=== PATIENT | female | born 1955 | race Caucasian/White ===

== ENCOUNTER 2025-01-11 11:25 | Inpatient (IN) | payer MEDICARE, OTHER ==
[~2025-01-11] VITALS: Ht 160 cm; Wt 69.0 kg
[~2025-01-11 11:25] MED LIST: NOCURR
[2025-01-11] MEDS: HydrALAZINE HCL 20 MG/ML VIAL IVP ONE (12:19)
[2025-01-11 12:27] LABS: BASOPHILS % (AUTO) 0.7 % (0.0-2.0); EOSINOPHILS % (AUTO) 2.9 % (1.0-6.0); HEMATOCRIT 39.5 % (36-46); LYMPHOCYTES # (AUTO) 2.5 K/uL (1.0-4.8); LYMPHOCYTES % (AUTO) 38.1 % (22.0-44.0); MEAN CORPUSCULAR HEMOGLOBIN 27.8 pg (26.0-34.0); MEAN CORPUSCULAR HGB CONC 32.8 G/dL (31.0-37.0); MEAN CORPUSCULAR VOLUME 85 fL (80-100); MONOCYTES # (AUTO) 0.5 K/uL (0.1-1.0); NEUTROPHILS # (AUTO) 3.4 K/uL (1.8-7.7); NEUTROPHILS % (AUTO) 51.3 % (40.0-70.0); PLATELET COUNT (AUTO) 333 K/uL (150-450); RED BLOOD CELL COUNT(AUTO) 4.66 MIL/uL (4.00-5.20); RED CELL DISTRIBUTION WIDTH 13.2 % (11.5-14.5); WHITE BLOOD COUNT (AUTO) 6.6 K/uL (4.5-11.0)
[2025-01-11 12:33] LABS: ANION GAP 8 mmol/L (8-16); CALCIUM, TOTAL 9.4 mg/dL (8.8-10.5); CARBON DIOXIDE 27 mmol/L (22-29); CHLORIDE 101 mmol/L (98-107); CREATININE 0.69 mg/dL (0.60-1.30); GLOMERULAR FILTR. RATE CALC > 60 mL/min (>60); SODIUM SERUM 136 mmol/L (136-145); UREA NITROGEN, BLOOD 16 mg/dL (7-18)
[2025-01-11 12:42] LABS: CREATINE KINASE, TOTAL ONLY 69 U/L (26-192); TROPONIN I-HIGH SENSITIVITY 10 ng/L (<51)
[2025-01-11 12:44] LABS: GLUCOSE,RANDOM 293 mg/dL (70-110)
[2025-01-11 12:53] LABS: B-TYPE NATRIURETIC PEPTIDE 33 pg/mL (0-100)
[2025-01-11 12:59] LABS: ALBUMIN 3.3 g/dL (3.4-5.0); BILIRUBIN,DIRECT 0.1 mg/dL (0.00-0.20); BILIRUBIN,TOTAL 0.5 mg/dL (0.1-1.0); TOTAL PROTEIN, SERUM 7.8 g/dL (6.4-8.2)
[2025-01-11 16:26] LABS: APPEARANCE,URINE HAZY (CLEAR); BILIRUBIN,URINE NEGATIVE (NEGATIVE); COLOR,URINE LIGHT YELLOW (YELLOW); GLUCOSE, URINE (UA) 300-500 mg/dL (NEGATIVE); KETONES,URINE TRACE mg/dL (NEGATIVE); LEUKOCYTE ESTERASE ,URINE NEGATIVE (NEGATIVE); NITRATE,URINE NEGATIVE (NEGATIVE); OCCULT BLOOD,URINE NEGATIVE (NEGATIVE); PROTEIN,URINE NEGATIVE (NEGATIVE); SPECIFIC GRAVITIY, URINE 1.013 (1.003-1.030); UROBILINOGEN,URINE <=1.0 mg/dL (<=1.0)
[2025-01-11 16:42] LABS: BACTERIA,URINE Few /HPF (None Seen); RBC,URINE 0-2 /HPF (0-2); SQUAMOUS EPITHELIAL CELL,UR Few /LPF (None Seen); WBC,URINE 0-2 /HPF (0-5)
[2025-01-11 17:15] VITALS: BP 175/81; PULSE 61; RESP 18; TEMP 98.1; O2SAT 99
[2025-01-11] MEDS ORDERED: BISACODYL 10 MG RECTAL RECTAL SUPPOSITORY PR PRN (17:30)
[2025-01-11] MEDS ORDERED: ONDANSETRON HCL 4 MG/2 ML VIAL IVP PRN (17:30)
[2025-01-11] MEDS ORDERED: MAGNESIUM HYDROXIDE SUSPENSION 30 ML UDCUP PO PRN (17:30)
[2025-01-11] MEDS ORDERED: OxyCODONE HCL/ACETAMINOPHEN 5-325 MG TABLET PO PRN (17:30)
[2025-01-11] MEDS ORDERED: ALBUTEROL SULFATE 2.5 MG/0.5 ML NEB SOLUTION NEB PRN (17:30)
[2025-01-11] MEDS ORDERED: ZOLPIDEM TARTRATE 5 MG TABLET PO PRN (17:30)
[2025-01-11] MEDS ORDERED: MORPHINE SULFATE 2 MG/ML SYRINGE IVP PRN (17:30)
[2025-01-11] MEDS ORDERED: ACETAMINOPHEN 325 MG TABLET PO PRN (17:30)
[2025-01-11] MEDS ORDERED: IPRATROPIUM BROMIDE 0.5 MG/2.5 ML NEB SOLUTION NEB PRN (17:30)
[2025-01-11 18:00] VITALS: BP 155/74; PULSE 60; RESP 18; TEMP 97.8; O2SAT 99
[2025-01-11] MEDS: HydrALAZINE HCL 20 MG/ML VIAL IVP PRN (18:21)
[2025-01-11 20:06] VITALS: BP 155/71; PULSE 84; RESP 18; TEMP 97.7; O2SAT 99
[2025-01-12] MEDS: HEPARIN SODIUM,PORCINE 5,000 UNITS/ML VIAL SQ SCH
[2025-01-12 00:08] VITALS: BP 139/60; PULSE 83; RESP 16; TEMP 98.1; O2SAT 96
[2025-01-12 04:18] VITALS: BP 145/64; PULSE 69; RESP 16; TEMP 98; O2SAT 99
[2025-01-12 08:33] VITALS: BP 146/72; PULSE 69; RESP 18; TEMP 98.8; O2SAT 98
[2025-01-12] MEDS: PANTOPRAZOLE SODIUM 40 MG/VIAL IVP SCH (08:54)
[2025-01-12] MEDS: AmLODIPine BESYLATE 10 MG TABLET PO SCH (08:54)
[2025-01-12] MEDS: DOCUSATE SODIUM 100 MG/10 ML LIQUID UDCUP PO SCH (08:55)
[2025-01-12 11:32] VITALS: BP 137/68; PULSE 73; RESP 18; TEMP 98.5; O2SAT 97
[2025-01-12] MEDS: MetFORMIN HCL 500 MG TABLET PO ONE (11:45)
[2025-01-12] MEDS: LOSARTAN POTASSIUM 25 MG TABLET PO ONE (11:45)
[2025-01-12] MEDS ORDERED: AMLO-258 PO (12:33)
[2025-01-12] MEDS ORDERED: METF-1211 PO (12:33)
[2025-01-12] MEDS ORDERED: LOSA-417 PO (12:33)
[2025-01-12] MEDS ORDERED: MetFORMIN HCL 500 MG TABLET PO SCH (18:00)
[2025-01-13] MEDS ORDERED: LOSARTAN POTASSIUM 25 MG TABLET PO SCH (09:00)
== END 2025-01-12 13:20 | disposition home or self-care (01) | DRG 305 ==
LOC: EMS 11:31 → EDH 15:53 → 5S 17:25
PROVIDERS: ADMIT Hospitalist; ATTEND Hospitalist
DX: I16.1 Hypertensive emergency (principal); E11.65 Type 2 diabetes mellitus with hyperglycemia; R00.1 Bradycardia, unspecified; R51.9 Headache, unspecified; I11.9 Hypertensive heart disease without heart failure; Z91.148 Patient's other noncompliance with medication regimen for other reason
CPT/HCPCS: 70450; 71045; 80048; 80076; 81001; 81003; 82550; 83880; 84484; 85025; 93005; 96374; 99291; J0360; J1644; J2470; 36415-L1; 36415-TC

== ENCOUNTER 2025-05-23 15:31 | Inpatient (IN) | payer MEDICARE, OTHER ==
[~2025-05-23] VITALS: Ht 152.4 cm; Wt 74.1 kg
[~2025-05-23 15:31] MED LIST changes: +AMLO-258 PO; +LOSA-417 PO; +METF-1211 PO; -NOCURR
[2025-05-23 16:30] LABS: PLATELET COUNT (AUTO) 359 K/uL (150-450); RED BLOOD CELL COUNT(AUTO) 4.92 MIL/uL (4.00-5.20); RED CELL DISTRIBUTION WIDTH 13.3 % (11.5-14.5); WHITE BLOOD COUNT (AUTO) 7.9 K/uL (4.5-11.0)
[2025-05-23 16:45] LABS: ASPARTATE AMINOTRANSFERASE 18.0 U/L (15-37); TOTAL PROTEIN, SERUM 7.9 g/dL (6.4-8.2)
[2025-05-23 16:47] LABS: CALCIUM, TOTAL 9.5 mg/dL (8.8-10.5); CREATININE 0.62 mg/dL (0.60-1.30); GLOMERULAR FILTR. RATE CALC > 60 mL/min (>60); GLUCOSE,RANDOM 136 mg/dL (70-110); SODIUM SERUM 142 mmol/L (136-145); UREA NITROGEN, BLOOD 16 mg/dL (7-18)
[2025-05-23 17:12] LABS: TROPONIN I-HIGH SENSITIVITY 8 ng/L (<51)
[2025-05-23 17:40] LABS: APPEARANCE,URINE CLEAR (CLEAR); GLUCOSE, URINE (UA) >=1000 mg/dL (NEGATIVE); LEUKOCYTE ESTERASE ,URINE NEGATIVE (NEGATIVE); NITRATE,URINE NEGATIVE (NEGATIVE); OCCULT BLOOD,URINE NEGATIVE (NEGATIVE); SPECIFIC GRAVITIY, URINE 1.008 (1.003-1.030)
[2025-05-23 18:01] LABS: SQUAMOUS EPITHELIAL CELL,UR Moderate /LPF (None Seen)
[2025-05-23 18:11] LABS: GLUCOMETER DEV NAME(LOC) ERT.7; GLUCOSE,POINT OF CARE 138 MG/DL (70-110)
[2025-05-23] MEDS ORDERED: ZOLPIDEM TARTRATE 5 MG TABLET PO PRN (19:00)
[2025-05-23] MEDS ORDERED: BISACODYL 10 MG RECTAL RECTAL SUPPOSITORY PR PRN (19:00)
[2025-05-23] MEDS ORDERED: MAGNESIUM HYDROXIDE SUSPENSION 30 ML UDCUP PO PRN (19:00)
[2025-05-23] MEDS ORDERED: ACETAMINOPHEN 325 MG TABLET PO PRN (19:00)
[2025-05-23] MEDS ORDERED: ONDANSETRON HCL 4 MG/2 ML VIAL IVP PRN (19:00)
[2025-05-23] MEDS ORDERED: MORPHINE SULFATE 2 MG/ML SYRINGE IVP PRN (19:00)
[2025-05-23] MEDS: DOCUSATE SODIUM 100 MG CAPSULE PO SCH (20:50)
[2025-05-24] VITALS: BP 176/57; PULSE 97; RESP 19; TEMP 98.6; O2SAT 97
[2025-05-24] MEDS: HEPARIN SODIUM,PORCINE 5,000 UNITS/ML VIAL SQ SCH (00:14)
[2025-05-24 04:00] VITALS: BP_SYST 154; BP_SYST 160; BP_DIAS 51; BP_DIAS 64; PULSE 46; PULSE 51; RESP 16; RESP 18; TEMP 97.7; TEMP 97.9; O2SAT 97; O2SAT 99
[2025-05-24 05:51] LABS: PLATELET COUNT (AUTO) 324 K/uL (150-450); RED BLOOD CELL COUNT(AUTO) 4.75 MIL/uL (4.00-5.20); RED CELL DISTRIBUTION WIDTH 13.3 % (11.5-14.5); WHITE BLOOD COUNT (AUTO) 8.2 K/uL (4.5-11.0)
[2025-05-24 05:57] LABS: CALCIUM, TOTAL 8.9 mg/dL (8.8-10.5); CREATININE 0.60 mg/dL (0.60-1.30); GLOMERULAR FILTR. RATE CALC > 60 mL/min (>60); GLUCOSE,RANDOM 157 mg/dL (70-110); SODIUM SERUM 138 mmol/L (136-145); UREA NITROGEN, BLOOD 13 mg/dL (7-18)
[2025-05-24 08:08] VITALS: BP 163/61; PULSE 44; RESP 18; TEMP 98.1; O2SAT 98
[2025-05-24] MEDS: LOSARTAN POTASSIUM 25 MG TABLET PO SCH (09:29)
[2025-05-24] MEDS: PANTOPRAZOLE SODIUM 40 MG DR TABLET PO SCH (09:29)
[2025-05-24 11:38] LABS: TROPONIN I-HIGH SENSITIVITY 10 ng/L (<51)
[2025-05-24 12:35] VITALS: BP 140/53; PULSE 59; RESP 18; TEMP 98.4; O2SAT 98
[2025-05-24 15:54] VITALS: BP 144/54; PULSE 60; RESP 18; TEMP 98.2; O2SAT 98
[2025-05-24 20:00] VITALS: BP 143/58; PULSE 71; RESP 18; TEMP 98.6; O2SAT 98
[2025-05-25 00:12] VITALS: BP 141/63; PULSE 57; RESP 18; TEMP 97.9; O2SAT 96
[2025-05-25 04:00] VITALS: BP 145/68; PULSE 65; RESP 18; TEMP 98.1; O2SAT 98
[2025-05-25] MEDS: LEVOTHYROXINE SODIUM 50 MCG TABLET PO SCH (06:11)
[2025-05-25 06:25] LABS: PLATELET COUNT (AUTO) 330 K/uL (150-450); RED BLOOD CELL COUNT(AUTO) 4.91 MIL/uL (4.00-5.20); RED CELL DISTRIBUTION WIDTH 13.1 % (11.5-14.5); WHITE BLOOD COUNT (AUTO) 10.0 K/uL (4.5-11.0)
[2025-05-25 06:27] LABS: CALCIUM, TOTAL 9.3 mg/dL (8.8-10.5); CREATININE 0.56 mg/dL (0.60-1.30); GLOMERULAR FILTR. RATE CALC > 60 mL/min (>60); GLUCOSE,RANDOM 226 mg/dL (70-110); SODIUM SERUM 138 mmol/L (136-145); UREA NITROGEN, BLOOD 18 mg/dL (7-18)
[2025-05-25 08:36] VITALS: BP 152/83; PULSE 60; RESP 19; TEMP 97.7; O2SAT 97
[2025-05-25] MEDS: HYDROCODONE/ACETAMINOPHEN 5-325 MG TABLET PO PRN (08:40)
[2025-05-25 11:13] VITALS: BP 131/95; PULSE 61; RESP 19; TEMP 97.9; O2SAT 99
[2025-05-25] MEDS ORDERED: AMLO-258 PO (11:55)
[2025-05-25] MEDS ORDERED: LEVO50 PO (11:55)
[2025-05-25] MEDS ORDERED: HYDR25TA84 PO (11:55)
[2025-05-25] MEDS ORDERED: CEPH-556 PO (11:55)
[2025-05-25] MEDS ORDERED: LOSA-417 PO (11:55)
[2025-05-25] MEDS ORDERED: CEPHALEXIN MONOHYDRATE 250 MG CAPSULE PO SCH (16:00)
== END 2025-05-25 14:00 | disposition home or self-care (01) | DRG 305 ==
LOC: EMS 15:31 → EDH 18:47 → 5S 21:33
PROVIDERS: ADMIT Internal Medicine; ATTEND Internal Medicine
DX: I16.0 Hypertensive urgency (principal); N39.0 Urinary tract infection, site not specified; E11.65 Type 2 diabetes mellitus with hyperglycemia; E78.5 Hyperlipidemia, unspecified; R00.1 Bradycardia, unspecified; E78.00 Pure hypercholesterolemia, unspecified; I10 Essential (primary) hypertension; E03.9 Hypothyroidism, unspecified; Z79.899 Other long term (current) drug therapy
CPT/HCPCS: 71045; 80048; 80076; 81001; 82962; 83880; 84439; 84443; 84484; 85025; 87077; 87086; 87186; 93005; 93306; 99285; G0378; J1644; 36415-L1; 36415-TC